=== PATIENT | male | born 1945 | race Two or more races ===

== ENCOUNTER 2022-12-02 09:46 | Inpatient (IN) | payer OTHER ==
[~2022-12-02] VITALS: Ht 160 cm; Wt 59.9 kg
[2022-12-02] MEDS ORDERED: COZAAR50 MG (09:52)
[2022-12-02] MEDS ORDERED: SYNTHROID50 MCG (09:52)
[2022-12-02 11:14] LABS: HEMATOCRIT 38.6 % (39.0-48.0); HEMOGLOBIN 12.8 g/dL (13-16.00); MEAN CELL VOLUME 88.8 fL (80.0-100.00); MEAN CORPUSCULAR HEMOGLOBIN 29.4 pg (27.00-32.0); MEAN CORPUSCULAR HGB CONC 33.1 g/dl (32.0-36.0); RED BLOOD COUNT 4.34 M/uL (4.00-6.00); RED CELL DISTRIBUTION WIDTH 13.2 % (11.5-14.5)
[2022-12-02 11:16] LABS: PLATELET COUNT 89 K/uL (150-450)
[2022-12-02 11:43] LABS: PH,URINE 5.5 (5.0-8.0); URINE APPEARANCE Clear; URINE BILIRRUBIN Moderate (NEGATIVE); URINE BLOOD Small; URINE COLOR Dark Yellow; URINE GLUCOSE Negative (NEGATIVE); URINE LEUKOCYTE Trace; URINE NITRATE Negative; URINE PROTEIN Trace (NEGATIVE)
[2022-12-02 11:49] LABS: CALCIUM 7.3 mg/dL (8.5-10.1); CREATININE SERUM 0.82 mg/dL (0.70-1.30); GFR 91.59
[2022-12-02 11:50] LABS: URINE BACTERIA 13.8 uL (0.0-1933); URINE EPITHELIAL CELLS 12.2 uL (0.0-38.8); URINE RBC 53.3 uL (0.0-20.8); URINE WBC 15.2 uL (0.0-23.2)
[2022-12-02 11:59] LABS: POTASSIUM 2.95 mEq/L (3.5-5.1)
[2022-12-02 20:48] LABS: ALBUMIN 2.3 gm/dL (3.4-5.0); BILIRUBIN,CONJUGATED 3.07 mg/dL (0.0-0.2); BILIRUBIN,UNCONJUGATED 0.93 mg/dL (0.0-0.6); TOTAL PROTEIN 7.3 gm/dL (6.4-8.2)
[2022-12-03 01:56] LABS: ABG PH 7.465 (7.35-7.45); ABG pCO2 35.9 mmHg (35-45); BASE EXCESS 1.8 mmol/l; BICARBONATE 25.2 mmol/l (23-25); SaO2 99.1 %; Tco2 26.3 mmol/l
[2022-12-03 01:57] LABS: allen test SATISFACTORY; o2 21 %; puncture site RADIAL RIGHT
[2022-12-03 02:52] LABS: C-REACTIVE PROTEIN 9.06 MG/DL (0.00-0.29)
[2022-12-03 05:25] LABS: INR 1.3; PARTIAL THROMBOPLASTIN TIME 25.6 SECONDS (22.0-34.0); PROTHROMBIN TIME 13.4 SECONDS (9.0-11.5)
[2022-12-04 18:39] LABS: HEMATOCRIT 33.6 % (39.0-48.0); HEMOGLOBIN 11.5 g/dL (13-16.00); MEAN CELL VOLUME 88.8 fL (80.0-100.00); MEAN CORPUSCULAR HEMOGLOBIN 30.3 pg (27.00-32.0); MEAN CORPUSCULAR HGB CONC 34.1 g/dl (32.0-36.0); PLATELET COUNT 187 K/uL (150-450); RED BLOOD COUNT 3.78 M/uL (4.00-6.00); RED CELL DISTRIBUTION WIDTH 13.8 % (11.5-14.5)
[2022-12-04 19:03] LABS: ALBUMIN 1.9 gm/dL (3.4-5.0); BILIRUBIN TOTAL 1.42 mg/dL (0.3-1.2); BILIRUBIN,CONJUGATED 0.96 mg/dL (0.0-0.2); BILIRUBIN,UNCONJUGATED 0.46 mg/dL (0.0-0.6); CREATININE SERUM 0.55 mg/dL (0.70-1.30); GFR 145.22; GLOBULINA 3.5 G/DL (2.4-3.5); POTASSIUM 3.08 mEq/L (3.5-5.1); TOTAL PROTEIN 5.4 gm/dL (6.4-8.2)
[2022-12-05 15:06] LABS: hav igm Negative (Negative); hcv Non Reactive (Non Reactive); hep b c Negative (Negative)
[2022-12-06 08:43] LABS: HEMATOCRIT 33.8 % (39.0-48.0); HEMOGLOBIN 11.2 g/dL (13-16.00); MEAN CELL VOLUME 89.6 fL (80.0-100.00); MEAN CORPUSCULAR HEMOGLOBIN 29.6 pg (27.00-32.0); MEAN CORPUSCULAR HGB CONC 33.1 g/dl (32.0-36.0); PLATELET COUNT 282 K/uL (150-450); RED BLOOD COUNT 3.78 M/uL (4.00-6.00)
[2022-12-06 09:00] LABS: ALBUMIN 2.1 gm/dL (3.4-5.0); BILIRUBIN TOTAL 1.48 mg/dL (0.3-1.2); CREATININE SERUM 0.45 mg/dL (0.70-1.30); GFR 183.06; GLOBULINA 3.6 G/DL (2.4-3.5); POTASSIUM 3.48 mEq/L (3.5-5.1); TOTAL PROTEIN 5.7 gm/dL (6.4-8.2)
[2022-12-06 09:47] LABS: CALCIUM 6.2 mg/dL (8.5-10.1)
[2022-12-07 14:52] LABS: HEMATOCRIT 35.7 % (39.0-48.0); HEMOGLOBIN 11.8 g/dL (13-16.00); MEAN CELL VOLUME 90.1 fL (80.0-100.00); MEAN CORPUSCULAR HEMOGLOBIN 29.8 pg (27.00-32.0); PLATELET COUNT 368 K/uL (150-450); RED BLOOD COUNT 3.96 M/uL (4.00-6.00); RED CELL DISTRIBUTION WIDTH 14.2 % (11.5-14.5)
[2022-12-07 15:24] LABS: ALBUMIN 2.3 gm/dL (3.4-5.0); BILIRUBIN TOTAL 1.18 mg/dL (0.3-1.2); CREATININE SERUM 0.48 mg/dL (0.70-1.30); GFR 169.92; GLOBULINA 3.7 G/DL (2.4-3.5); POTASSIUM 3.7 mEq/L (3.5-5.1)
[2022-12-07 15:50] LABS: CALCIUM 5.8 mg/dL (8.5-10.1)
== END 2022-12-07 19:20 | disposition home or self-care (01) | DRG 871 ==
LOC: ER 09:46 → MEDJ 23:07 → SEC-K 23:07 → MEDJ 12-03 03:29
PROVIDERS: General Practice; Internal Medicine; Student in an Organized Health Care Education/Training Program; ADMIT Specialist; ATTEND Specialist
PROC: BW21ZZZ Computerized Tomography (CT Scan) of Abdomen and Pelvis (ICD-10-PCS; principal; 2022-12-02)
DX: A41.9 Sepsis, unspecified organism (principal); J69.0 Pneumonitis due to inhalation of food and vomit; A27.9 Leptospirosis, unspecified; N17.9 Acute kidney failure, unspecified; K52.89 Other specified noninfective gastroenteritis and colitis; E86.0 Dehydration; I10 Essential (primary) hypertension; E03.9 Hypothyroidism, unspecified; E11.9 Type 2 diabetes mellitus without complications; Z79.4 Long term (current) use of insulin